=== PATIENT | male | born 1960 | race Caucasian/White ===

== ENCOUNTER 2019-09-13 11:35 | Emergency (ER) | payer OTHER, SELFPAY ==
--- NOTE | ~2019-09-13 | XR_ITS ---
EXAMINATION: XR chest 2V DATE: 09/13/2019 12:36 INDICATION: Near syncope. TECHNIQUE: Frontal and lateral views of the chest were obtained. COMPARISON: Chest single view 07/29/2019, CT abdomen 09/21/2006 FINDINGS: Calcified pulmonary nodules and calcified hilar lymph nodes are consistent with old granulo matous disease. No pleural effusion or pneumothorax. The heart size is normal. IMPRESSION: 1. No acute cardiopulmonary disease. Reviewed, dictated and finalized at location A. 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
[2019-09-13 11:43] VITALS: BP 155/95; PULSE 72; RESP 19; TEMP 36.8; O2SAT 98
--- NOTE | 2019-09-13 11:47 | ECG_ITS ---
Measurements Intervals [place] Rate: 71 P: 48 NC: 152 QRS: -18 QRSD: 99 T: 20 QT: 389 QTc: 425 Interpretive Statements SINUS RHYTHM DELAYED PRECORDIAL R/S TRANSITION BORDERLINE ECG Electronically Signed On 09-13-2019 11:58:19 EXCHANGE FLOOR MANAGER by Rachid Najera D.O.
[2019-09-13 11:57] LABS: Basophils Absolute Auto 0.1 K/mm3 (0.0-0.1); Basophils Percent Auto 1.1 % (0.2-1.2); Eosinophils Absolute Auto 0.2 K/mm3 (0-0.3); Hematocrit 41.2 % (42.0-52.0); Hemoglobin 13.7 g/dL (14.0-18.0); Immature Granulocyte Absolute 0.01 K/mm3 (0.00-0.031); Immature Granulocyte Percent A 0.1 % (0-0.5); Lymphocytes Absolute Auto 2.54 K/mm3 (0.9-3.2); Lymphocytes Percent Auto 31.9 % (18.3-44.2); Mean Corpuscular HGB Conc 33.3 g/dl (32-36); Mean Corpuscular Hemoglobin 30.6 pg (26-34); Mean Corpuscular Volume 92.2 fl (80-100); Mean Platelet Volume 9.1 fl (7.4-10.4); Monocytes Absolute Auto 0.6 K/mm3 (0.1-0.6); Monocytes Percent Auto 7.4 % (2.6-8.5); Neutrophils Absolute Auto 4.5 K/mm3 (1.3-6.7); Neutrophils Percent Auto 56.5 % (45.5-73.1); Platelet Count Result 270 k/mm3 (150-375); Red Blood Count 4.47 M/mm3 (4.6-6.20); Red Cell Distribution Width 11.8 % (11.5-14.5)
[2019-09-13 12:09] LABS: Alanine Aminotransferase 32 U/L (4-50); Albumin Level 4.5 g/dL (3.5-5.1); Alkaline Phosphatase 67 U/L (38-126); Aspartate Amino Transferase 30 U/L (17-59); Bilirubin,Total 0.4 mg/dL (0.2-1.3); Blood Urea Nitrogen 13 mg/dL (9-20); Calcium 9.6 mg/dL (8.4-10.2); Carbon Dioxide 28 mmol/L (22-30); Chloride 100 mmol/L (98-107); Estimated CRCL calculation 98 ml/min; Estimated Glomerular Filt Rate > 60; Glucose 105 mg/dL (75-110); Potassium 4.1 mmol/L (3.4-5.0); Sodium 141 mmol/L (137-145)
[2019-09-13 12:29] VITALS: BP 139/87; PULSE 72; RESP 17; O2SAT 97
--- NOTE | 2019-09-13 12:44 | ED.WEAKNESS ---
HPI - Weakness General Chief complaint: Weakness Stated complaint: Near Syncope Time Seen by Provider: 09/13/19 12:36 History of Present Illness HPI Narrative: A 58 y/o male pt presents to the ED, with c/o weakness that began at 1000 AM this morning. Pt states he was sitting at his desk at work when he felt a flush go across his head, moving from the lt side of his head to the rt. He states that following the flush he felt lightheaded and like he was going to pass out. He also notes feeling tingly and uneasy afterwards, similar to how he feels with his vertigo. Pt notes having 3 episodes that occurred about every 15 minutes and occurred when sitting and standing. He called his doctor and he was advised to come to the ED. He states he has a Hx of vertigo but says the onset is different than episodes he's had in the past. Pt notes that he currently feels fatigued and unsteady upon standing. He denies N/V, CP, SOB, fever, or change in appetite. Pt notes having oral surgery for a tooth extraction on Tuesday (3 days ago) and was advised to alternate between Tylenol Arthritis and Ibuprofen. He reports taking Ibuprofen x 2 before bed last night and 2 more this morning for his mouth. Pt notes having a Hx of HTN that he was placed on Losartan for and notes that he has not felt right since. Related Data Home Medications Medication Instructions Recorded Confirmed bupropion HCl 150 mg tablet,12 hr 150 mg PO BID 07/20/19 sustained-release simvastatin 20 mg tablet 20 mg PO HS 07/20/19 cholecalciferol (vitamin D3) 2,000 unit PO DAILY 07/29/19 [Vitamin D3] cyanocobalamin (vitamin B-12) 1,000 mcg PO DAILY 07/29/19 [Vitamin B-12] Allergies Allergy/AdvReac Type Severity Reaction Status Date / Time No Known Allergies Allergy Verified 09/07/19 15:33 [facility] Social History Social History Smoking status: Former smoker Alcohol intake: never Additional living arrangements comments: Essie Nagy Additional occupation/education comments: [employer] Gender identity (if verbalized by the patient): Male Exam Const: General: healthy appearing, no acute distress and alert Nutritional Appearance: well nourished Orientation/consciousness: patient oriented x3 HENMT: Head: normal to inspection Eyes: Conjunctivae: conjunctivae normal Pupils: Equal, round and reactive pupils present EOM: EOMs intact bilaterally Chest: Chest palpation & inspection: normal inspection of the chest Resp: Effort & Inspection: normal respiratory effort Auscultation: clear to auscultation bilaterally Cardio: Rate: regular rate Rhythm: regular rhythm GI: GI Palp: Yes Soft to palpation and No Tenderness to palpation present (GI) Skin: General skin exam: normal color Rashes: no rashes Neuro: General: patient oriented x3, moves all extremities, no focal motor deficits and CN's II-XI intact bilaterally Cranial nerves: Yes Nystagmus not present Speech: normal speech Extrem: General: normal to inspection and no edema Psych: Affect: Anxious affect present Course Vital Signs Vital signs: Vital Signs Temperature 36.8 C 09/13/19 11:43 Pulse Rate 72 09/13/19 11:43 Respiratory Rate 19 09/13/19 11:43 Blood Pressure 155/95 H 09/13/19 11:43 Pulse Oximetry 98 09/13/19 11:43 Temperature 36.8 C 09/13/19 11:43 Pulse Rate 72 09/13/19 12:29 Respiratory Rate 17 09/13/19 12:29 Blood Pressure 139/87 09/13/19 12:29 Pulse Oximetry 97 09/13/19 12:29 MDM - Weakness Lab Data Result diagrams: 09/13/19 11:51 09/13/19 11:51 Labs: Lab Results 09/13/19 09/13/19 09/13/19 Range/Units 11:51 11:51 13:37 WBC 8.0 (4.5-10.0) K/mm3 RBC 4.47 L (4.6-6.20) M/mm3 Hgb 13.7 L (14.0-18.0) g/dL Hct 41.2 L (42.0-52.0) % MCV 92.2 (80-100) fl MCH 30.6 (26-34) pg MCHC 33.3 (32-36) g/dl RDW 11.8 (1
[2019-09-13] MEDS: SODIUM CHLORIDE 0.9% IV 1,000 ML 999 ML IV CONT (13:41)
[2019-09-13 13:44] LABS: Add Urine Microscopic? NO; Appearance Urine Clear (Clear); Bilirubin Urine Negative (Negative); Blood Urine Negative (Negative); Color Urine Colorless (Yellow); Glucose Urine UA Negative (Negative); Ketones Urine Negative (Negative); Leukocyte Esterase Ur Negative LEU/UL (Negative); Nitrate Urine Negative (Negative); Protein Urine Negative (Negative); Specific Grav Ur 1.008 (1.001-1.035); Urobilinogen Urine Negative mg/dL (<2.0)
[2019-09-13 14:00] VITALS: BP 130/85; PULSE 71; RESP 15; O2SAT 99
[2019-09-13 15:40] VITALS: BP 136/86; PULSE 67; RESP 15; O2SAT 100
== END 2019-09-13 15:40 | disposition home or self-care (01) ==
PROVIDERS: Emergency Provider Emergency Medicine; PCP Family Medicine
DX: R42 Dizziness and giddiness (principal); Z87.891 Personal history of nicotine dependence; R94.31 Abnormal electrocardiogram [ECG] [EKG]
CPT/HCPCS: 36415; 71046; 80053; 81003; 85025; 93005; 96360; 99283; J7030

== ENCOUNTER 2019-09-17 09:37 | Outpatient (CLI) | payer OTHER, SELFPAY ==
--- NOTE | ~2019-09-17 | XR_ITS ---
XR knee RT 3V DATE: 09/17/2019 10:16 INDICATION: Primary osteoarthritis, right knee TECHNIQUE: 3 views COMPARISON: 04/10/2018 right knee FINDINGS: There is minimal loss of height of the medial compartment joint space. No fracture or dislo cation or joint effusion, radiopaque intra-articular loose body or chondrocalcinosis is detected. Mil d superior pole patellar enthesopathy. IMPRESSION: Minimal osteoarthritis Reviewed, dictated and finalized at location B. CONCURRENT REVIEW IMPRESSION: Minimal osteoarthritis
--- NOTE | ~2019-09-17 | XR_ITS ---
XR knee LT 3V DATE: 09/17/2019 10:16 INDICATION: Primary osteoarthritis TECHNIQUE: AP, lateral, sunrise views COMPARISON: None FINDINGS: There is mild loss of height of medial compartment joint space and minimal periarticular sp urring of the medial tibial plateau. No fracture or dislocation or joint effusion, radiopaque intra-articular loose body or chondrocalcino sis. No evidence of joint effusion. IMPRESSION: Mild osteoarthritis at the medial compartment Reviewed, dictated and finalized at location B. ER
--- NOTE | ~2019-09-17 | XR_ITS ---
XR hip BI 2V w AP pelvis DATE: 09/17/2019 10:14 INDICATION: Hip osteoarthritis. Hip pain. TECHNIQUE: AP pelvis. AP and lateral views of each hip. COMPARISON: None FINDINGS: The pubic symphysis and sacroiliac joints are intact. No pelvic fracture or bone destructio n is detected. No fracture, dislocation, avascular necrosis or bone destruction of either hip is note d. Hip joint spaces are symmetric and relatively preserved. There is degenerative disc disease at L4-5 and likely to a greater extent at L5-S1. IMPRESSION: Degenerative disc disease at L4-5 and L5-S1 Reviewed, dictated and finalized at location B. 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
== END 2019-09-17 09:38 | disposition home or self-care (01) ==
LOC: ANHIMG 09:41
PROVIDERS: PCP Family Medicine; Visit Provider Family Medicine
DX: M16.9 Osteoarthritis of hip, unspecified (principal); M17.11 Unilateral primary osteoarthritis, right knee; M51.37 Other intervertebral disc degeneration, lumbosacral region; M17.12 Unilateral primary osteoarthritis, left knee
CPT/HCPCS: 73521; 73562

== ENCOUNTER 2019-09-25 15:54 | Outpatient (CLI) | payer OTHER, SELFPAY ==
--- NOTE | ~2019-09-25 | MR_ITS ---
EXAMINATION: MR brain/brain stem wo/w con DATE: 09/25/2019 16:54 INDICATION: Dizziness, giddiness and unsteady gait. TECHNIQUE: Magnetic resonance imaging (MRI) of the brain and brainstem was performed without and with 20 mL Multihance intravenous contrast. Sequences included sagittal and axial T1-weighted SE, axial d iffusion-weighted FS SE, axial T2*-weighted GRE, axial T2-weighted FLAIR, and axial T2-weighted FSE. Postcontrast axial and coronal T1-weighted SE was obtained. Apparent diffusion coefficient (ADC) maps were created. COMPARISON: 12/05/2012 FINDINGS: There are no areas of restricted diffusion to suggest acute infarction. Again seen is a approximately 4.9 x 4.0 x 3.5 cm arachnoid cyst in the left middle cranial fossa anterior to the left temporal lob e which remains correspondingly decreased in size. No intracranial hemorrhage or abnormal intracrania l mass lesion. No interval change in a couple small nonspecific T2 hyperintense lesions in the anteri or right frontal lobe which is within normal limits for age. There are no intraparenchymal signal abn ormalities seen on the other pulse sequences. The ventricles are symmetric and normal in size. Flow v oids are seen in the cerebral arteries on the T2-weighted sequences consistent with their expected pa tency. This retention cyst at the base of the right maxillary sinus. Mild mucosal thickening the bila teral ethmoid sinuses. Visualized orbits and soft tissues are unremarkable. There are no areas of abn ormal enhancement on the post contrast images. IMPRESSION: 1. Unchanged arachnoid cyst in the left middle cranial fossa. Reviewed, dictated and finalized at location A. 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
[2019-09-25 16:35] LABS: Blood Urea Nitrogen 12 mg/dL (8-26); Estimated Glomerular Filt Rate > 60
== END 2019-09-25 15:55 | disposition home or self-care (01) ==
LOC: ANHIMG 16:04
PROVIDERS: PCP Family Medicine; Visit Provider Physician Assistant
DX: R42 Dizziness and giddiness (principal); G93.0 Cerebral cysts
CPT/HCPCS: 70553; A9577

== ENCOUNTER 2020-08-12 06:51 | Outpatient (NON) | payer OTHER, SELFPAY ==
[2020-08-13 00:16] LABS: SARS-CoV-2 RNA PCR Negative
== END 2020-08-12 06:52 ==
LOC: ANHCOVIDDT 07:07
PROVIDERS: PCP Family Medicine; Visit Provider Physician Assistant
DX: Z20.822 Contact with and (suspected) exposure to COVID-19 (principal); R05 Cough
CPT/HCPCS: C9803; U0003; U0005

== ENCOUNTER 2021-10-30 07:48 | Emergency (ER) | payer OTHER, SELFPAY ==
[2021-10-30 07:53] VITALS: BP 167/92; PULSE 107; RESP 16; TEMP 36.2; O2SAT 97
--- NOTE | 2021-10-30 09:13 | ED.GENADULT ---
HPI - General Adult General Chief complaint: Unspecified Stated complaint: my epiglottis is swollen Time Seen by Provider: 10/30/21 09:12 History of Present Illness HPI narrative: Patient is a 60 year old male with a past medical history of HTN, HLD, anxiety who presents for evaluation of a swollen uvula this morning. Patient states he woke up and felt that his uvula was swollen, and he googled it and mistook it for his epiglottis. Patient was concerned for epiglotitis, so he came in to be evaluated. He denies any difficulty breathing, drooling, fevers, chills, sore throat, vocal changes, cough. Was around several children this weekend. He received all of his childhood vaccinations. Related Data Home Medications Medication Instructions Recorded Confirmed cyanocobalamin (vitamin B-12) 1,000 mcg PO DAILY 07/29/19 05/22/21 [Vitamin B-12] Allergies Allergy/AdvReac Type Severity Reaction Status Date / Time No Known Allergies Allergy Verified 05/22/21 09:09 Review of Systems Review of Systems: All systems reviewed & are unremarkable except as noted in HPI and below [facility] Surgical History Surgical History History of rotator cuff surgery Left shoulder 05/30/2018 Family History Family History Grandparent Family history of cardiovascular disease Father Hypertension Heart disease Malignant neoplasm of prostate Social History Social History (Updated 05/22/21 @ 09:12 by CHARLIE Verdin) Alcohol intake: never Additional living arrangements comments: Essie Nagy Additional occupation/education comments: [employer] Gender identity (if verbalized by the patient): Male Exam Const: General: healthy appearing, no acute distress and alert Nutritional Appearance: average body habitus HENMT: Head: normal to inspection, normocephalic and atraumatic Ears: external ears normal and TM's normal bilaterally General nose exam: Normal external nose present and Normal nares present Face and sinus: normal facial exam Mouth: Yes Normal oral and palatal mucosa present, Yes tongue normal, Yes oropharynx normal, No trismus and No restricted motion Throat: tonsils normal, uvula midline (patient's uvula is very mildly edematous but is not erythematous ) and no peritonsillar masses Neck: Neck: normal visual inspection, full ROM, no lymphadenopathy, no meningeal signs, supple and no anterior neck swelling Resp: Effort & Inspection: normal respiratory effort, able to speak in complete sentences, no audible wheezes, no nasal flaring and no pursed lip breathing Cardio: Rate: tachycardic Rhythm: regular rhythm Heart sounds: S1 normal heart sound present and S2 normal heart sound present GI: Inspection: normal to inspection Course Vital Signs Vital signs: Vital Signs Temperature 97.2 F L 10/30/21 07:53 Pulse Rate 107 H 10/30/21 07:53 Respiratory Rate 16 10/30/21 07:53 Blood Pressure 167/92 H 10/30/21 07:53 Pulse Oximetry 97 10/30/21 07:53 Temperature 98.2 F 10/30/21 09:48 Pulse Rate 99 10/30/21 09:48 Respiratory Rate 16 10/30/21 09:48 Blood Pressure 152/87 H 10/30/21 09:48 Pulse Oximetry 100 10/30/21 09:48 Medical Decision Making [facility] Narrative Medical decision making narrative: 60 year old male here with reported swelling of his epiglottitis this morning, but no signs of airway obstruction. VSS; anxious appearing. On my exam patient did not have a visible epiglottis. When I showed him a picture of an oropharynx for clarification, he pointed to the uvula as what he was referring to as swollen this morning. By my exam, patient's uvula was mildly edematous but not erythematous, and did not have signs of obstruction. He was very relieved once I told him this and states he would like to go home. I explained strict return precautions to him, and t
[2021-10-30 09:48] VITALS: BP 152/87; PULSE 99; RESP 16; TEMP 36.8; O2SAT 100
== END 2021-10-30 09:49 | disposition home or self-care (01) ==
PROVIDERS: Emergency Provider Emergency Medicine; PCP Family Medicine
DX: R22.1 Localized swelling, mass and lump, neck (principal); I10 Essential (primary) hypertension; E78.5 Hyperlipidemia, unspecified; F41.9 Anxiety disorder, unspecified
CPT/HCPCS: 99281

== ENCOUNTER 2021-12-02 18:25 | Outpatient (CLI) | payer OTHER, SELFPAY ==
--- NOTE | ~2021-12-02 | XR_ITS ---
EXAMINATION: XR chest 2V Exam Date/Time: 12/02/2021 18:38 CDT CLINICAL HISTORY: Cough X 3 WEEKS, FEVER STARTING TODAY, TESTED + COVID TODAY Comparison: 09/13/19. RESULT: Lines, tubes, and devices: None. Lungs and pleura: Clear. Cardiomediastinal silhouette: Stable cardiomediastinal silhouette. Other: No acute osseous or upper abdominal finding. IMPRESSION: No acute cardiopulmonary process Reviewed, dictated and finalized at location K.
== END 2021-12-02 18:26 | disposition home or self-care (01) ==
PROVIDERS: PCP Family Medicine; Visit Provider Physician Assistant
DX: R05.9 Cough, unspecified (principal)
CPT/HCPCS: 71046

== ENCOUNTER 2022-05-20 08:11 | Outpatient (CLI) | payer OTHER, SELFPAY ==
[2022-05-20 20:04] LABS: Basophils Absolute Auto 0.1 K/mm3 (0.0-0.1); Basophils Percent Auto 1.9 % (0.2-1.2); Eosinophils Absolute Auto 0.2 K/mm3 (0-0.3); Eosinophils Percent Auto 2.7 % (0-4.4); Hematocrit 43.2 % (42.0-52.0); Immature Granulocyte Absolute 0.01 K/mm3 (0.00-0.031); Immature Granulocyte Percent A 0.2 % (0-0.5); Lymphocytes Absolute Auto 2.41 K/mm3 (0.9-3.2); Lymphocytes Percent Auto 38.9 % (18.3-44.2); Mean Corpuscular HGB Conc 32.4 g/dl (32-36); Mean Corpuscular Hemoglobin 30.6 pg (26-34); Mean Corpuscular Volume 94.5 fl (80-100); Mean Platelet Volume 9.3 fl (7.4-10.4); Monocytes Absolute Auto 0.5 K/mm3 (0.1-0.6); Monocytes Percent Auto 7.4 % (2.6-8.5); Neutrophils Percent Auto 48.9 % (45.5-73.1); Platelet Count Result 310 k/mm3 (150-375); Red Blood Count 4.57 M/mm3 (4.6-6.20); Red Cell Distribution Width 12.1 % (11.5-14.5); White Blood Count 6.2 K/mm3 (4.5-10.0)
[2022-05-20 20:46] LABS: Alanine Aminotransferase 31 U/L (6-50); Albumin Level 4.7 g/dL (3.5-5.1); Alkaline Phosphatase 71 U/L (38-126); Anion Gap 10 mmol/L (8-16); Aspartate Amino Transferase 29 U/L (17-59); Bilirubin,Total 0.5 mg/dL (0.2-1.3); Blood Urea Nitrogen 14 mg/dL (9-20); Calcium 9.5 mg/dL (8.4-10.2); Carbon Dioxide 26 mmol/L (22-30); Chloride 105 mmol/L (98-107); Cholesterol 159 mg/dL (0-200); Estimated Glomerular Filt Rate > 60; Glucose 116 mg/dL (65-110); HDL Direct 33 mg/dL; Potassium 3.9 mmol/L (3.4-5.0); Sodium 141 mmol/L (137-145); Triglycerides 99 mg/dL (<150)
[2022-05-20 20:57] LABS: LDL Cholesterol Direct 108 mg/dL
[2022-05-20 21:16] LABS: Prostate Specific Antigen 1.8 ng/mL (< OR = 4.0)
== END 2022-05-20 08:12 | disposition home or self-care (01) ==
LOC: ANHGOSHLAB 08:12
PROVIDERS: PCP Family Medicine; Visit Provider Family Medicine
DX: R73.03 Prediabetes (principal); I10 Essential (primary) hypertension; Z12.5 Encounter for screening for malignant neoplasm of prostate; E78.2 Mixed hyperlipidemia; R53.83 Other fatigue
CPT/HCPCS: 36415; 80053; 80061; 83036; 84153; 85025; G0103

== ENCOUNTER 2022-11-01 12:34 | Outpatient (CLI) | payer OTHER, SELFPAY ==
[2022-11-01 18:12] LABS: Basophils Absolute Auto 0.1 K/mm3 (0.0-0.1); Basophils Percent Auto 1.2 % (0.2-1.2); Eosinophils Absolute Auto 0.1 K/mm3 (0-0.3); Eosinophils Percent Auto 1.6 % (0-4.4); Hemoglobin 14.7 g/dL (14.0-18.0); Immature Granulocyte Absolute 0.02 K/mm3 (0.00-0.031); Immature Granulocyte Percent A 0.2 % (0-0.5); Lymphocytes Absolute Auto 3.15 K/mm3 (0.9-3.2); Lymphocytes Percent Auto 35.3 % (18.3-44.2); Mean Corpuscular HGB Conc 33.4 g/dl (32-36); Mean Corpuscular Hemoglobin 30.9 pg (26-34); Mean Corpuscular Volume 92.6 fl (80-100); Monocytes Absolute Auto 0.6 K/mm3 (0.1-0.6); Monocytes Percent Auto 6.4 % (2.6-8.5); Neutrophils Absolute Auto 4.9 K/mm3 (1.3-6.7); Neutrophils Percent Auto 55.3 % (45.5-73.1); Platelet Count Result 295 k/mm3 (150-375); Red Blood Count 4.75 M/mm3 (4.6-6.20); Red Cell Distribution Width 12.2 % (11.5-14.5); White Blood Count 8.9 K/mm3 (4.5-10.0)
[2022-11-01 18:29] LABS: Rheumatoid Factor < 8.6 IU/ML (<12)
[2022-11-01 18:30] LABS: CRP < 0.5 mg/dL (<1.0); Uric Acid 5.4 mg/dL (3.5-8.5)
[2022-11-01 19:14] LABS: Erythrocyte Sedimentation Rate 6 mm/hr (0-20)
[2022-11-07 14:16] LABS: Anti Nuclear Antibody Pattern Nuclear, Speckled
== END 2022-11-01 12:35 | disposition home or self-care (01) ==
LOC: ANHGOSHLAB 12:35
PROVIDERS: PCP Family Medicine; Visit Provider Orthopaedic Surgery
DX: M17.0 Bilateral primary osteoarthritis of knee (principal); M06.9 Rheumatoid arthritis, unspecified
CPT/HCPCS: 36415; 84550; 85025; 85652; 86038; 86039; 86140; 86430

== ENCOUNTER 2023-01-21 09:08 | Outpatient (CLI) | payer OTHER, SELFPAY ==
--- NOTE | 2023-02-15 13:11 | WPDSLEEPSTUD ---
Sleep Study Date of Study: 01/21/23 Ordering Provider: Walter Bar DO Interpreting Physician: Daysi Argueta DO Sleep Study Type: Split Polysomnogram Height: 1.83 m Weight: 108.862 kg Body Mass Index: 32.5 Neck Circumference (inches): 19 [place]: 11 Reason for Sleep Study Witnessed apneas Sleep History The patient is a 62-year-old male with hypertension, hyperlipidemia,, psoriasis, bilateral arthritis of knees and history of tobacco use that had a sleep study by his primary care for of sleep apnea. The patient rarely awakens from sleep short of breath. He occasionally awakens at night with heartburn, belching or cough. He frequently snores and is frequently loud enough that others complain. He frequently has trouble sleeping when he has a cold. He denies waking up gasping for air throughout the night. He occasionally has breathing problems at night observed by himself or others. He occasionally sweats excessively at night. He occasionally has heart palpitations or irregular heartbeats during the night. He rarely falls asleep during the day. He rarely falls asleep while driving. He denies sleep paralysis, cataplexy and hypnagogic / hypnopompic hallucinations. He occasionally has trouble at school or work due to sleepiness. He denies feeling afraid of going to sleep. He rarely has nightmares and rarely remembers his dreams. He frequently has thoughts racing through his mind. He rarely feels sad or depressed. He occasionally has anxiety. He rarely has muscular tension. He occasionally notices parts of his body jerk. He rarely kicks during the night. He rarely experiences crawling and aching feelings in his legs but never has leg pain during the night. He rarely grinds his teeth during sleep never awakens with morning jaw pain. He is occasionally bothered by pain during the day but rarely awakened by pain the night he frequently wakes up feeling stiff morning. Frequently wakes up with sore or achy muscles. He rarely wakes with pain in the neck, spine and other joints. He goes to bed at 9:30 p.m. on weekdays and at 10:00 p.m. weekends. It takes him less than 5 minutes to fall asleep. Wakes up 7 times throughout the night to urinate and is able to fall back asleep within a few minutes or sometimes a few hours. He wakes up at 6:00 a.m. on both weekdays and weekends. He typically gets 6 hours of sleep per night. He will stay in bed for 15 minutes after waking up in morning. He currently lives with his and other family members. He does consume caffeinated beverages within 2 hours of bedtime. He denies engaging in physical exercise before bedtime. He denies reading watching television before falling asleep. He will take naps in the afternoon or the evening and they are refreshing. He consumes 3 caffeinated beverages per day. He quit smoking cigarettes 20 years ago. He denies alcohol and recreational drug use. [facility] Past Medical History Medical History Anxiety Degenerative arthritis of knee, bilateral High cholesterol Hypertension Psoriasis Surgical History Surgical History History of rotator cuff surgery Left shoulder 05/30/2018 Family History Family History Grandparent Family history of cardiovascular disease Father Hypertension Heart disease Malignant neoplasm of prostate Social History Social History Smoking status: Former smoker Alcohol intake: never Substance use: never Substance use type: does not use Lack of Transportation: No Lack of Food: Never True Current Housing: I Have Housing Concerned About Future Housing: No Difficulty Paying Gas/Electric Bills: No Difficulty Paying for Meds: No Currently Unemployed: No Education: Bachelor'
[2023-02-15 13:13] VITALS: BMI 32.5
== END 2023-01-22 07:59 | disposition home or self-care (01) ==
LOC: ANHCSM 09:08
PROVIDERS: PCP Family Medicine; Visit Provider Family Medicine
DX: G47.33 Obstructive sleep apnea (adult) (pediatric) (principal); R53.83 Other fatigue
CPT/HCPCS: 95811

== ENCOUNTER 2023-04-01 03:44 | Day surgery (SDC) | payer OTHER, SELFPAY ==
[2023-03-21 11:23] VITALS: BMI 31.4
[2023-04-01 08:47] VITALS: BP 138/82; PULSE 74; RESP 18; TEMP 36.2; O2SAT 97
[2023-04-01] MEDS: LACTATED RINGERS 1,000 ML 150 ML IV CONT (09:05)
--- NOTE | 2023-04-01 09:18 | WPDANESEPPF ---
Anes - Initial Pre Proc Eval Procedure: Operation Date: 04/01/23 10:00 Proposed Procedures p Screening Colonoscopy - Derrick Rich MD Date/Time: 04/01/23 09:18 Surgeon: Derrick Rich MD Pre Op Diagnosis: neoplasm screening Patient Data Age: 62 Gender: M Height: 1.83 m Weight: 104.6 kg Last Vital Signs Temp 97.2 F L 04/01/23 08:47 Pulse 74 04/01/23 08:47 Resp 18 04/01/23 08:47 BP 138/82 04/01/23 08:47 Pulse Ox 97 04/01/23 08:47 O2 Del Method Room Air 04/01/23 08:47 Allergies Allergy/AdvReac Type Severity Reaction Status Date / Time No Known Allergies Allergy Verified 04/01/23 08:46 Home Medications Medication Instructions Recorded Confirmed Type albuterol sulfate 90 mcg/actuation 2 inh inhalation Q4H PRN Allergy 05/14/22 03/31/23 History aerosol inhaler (ProAir HFA) Symptoms losartan 25 mg tablet See Rx Instructions .Route 08/24/22 03/31/23 Rx .COMPLEX #90 tabs simvastatin 20 mg tablet See Rx Instructions .Route 08/24/22 03/31/23 Rx .COMPLEX #90 tabs bupropion HCl 150 mg tablet,12 hr See Rx Instructions .Route 11/11/22 03/31/23 Rx sustained-release .COMPLEX #180 tabs CPAP #1 ea 02/15/23 02/17/23 Rx Patient hx anesthesia problems: none Family hx anesthesia problems: none Results Review: All pre-operative results and documents have been reviewed as part of the pre-operative evaluation. [facility] Past Medical History Medical History Anxiety Degenerative arthritis of knee, bilateral High cholesterol Hypertension Psoriasis Surgical History Surgical History History of rotator cuff surgery Left shoulder 05/30/2018 Family History Family History Grandparent Family history of cardiovascular disease Father Hypertension Heart disease Malignant neoplasm of prostate Social History Social History Smoking status: Former smoker Alcohol intake: never Substance use: never Substance use type: does not use Lack of Transportation: No Lack of Food: Never True Current Housing: I Have Housing Concerned About Future Housing: No Difficulty Paying Gas/Electric Bills: No Difficulty Paying for Meds: No Currently Unemployed: No Education: Bachelor's Degree Difficulty w/ Childcare or Family Care: No Living arrangements: with family Additional living arrangements comments: Essie Nagy Occupation/Education: occupation Additional occupation/education comments: [employer] Gender identity (if verbalized by the patient): Male Spiritual care concerns: No Anes - Eval Final PreProcedure Day of Procedure 04/01/23 09:18 Patient weight: obese Heart: regular rate and rhythm Lungs: clear to auscultation Airway: Mallampati scale class II Neurological: alert and oriented Last oral intake: >/= 8 hours ASA classification: III Emergent: no Anesthetic plan: proceed Anesthesia type and monitoring: general GIVS and standard monitoring Results Review: All pre-operative results and documents have been reviewed as part of the pre-operative evaluation. Informed Consent: The patient's anesthetic plan and its attendant risks and benefits were discussed with the patient/family/POA. Questions were solicited and answers provided to the satisfaction of the patient/family/POA.
--- NOTE | 2023-04-01 09:41 | PM.HPGS ---
History of Present Illness History of Present Illness Consent: Risks, benefits, and alternatives have been discussed and questions answered. Patient agrees to proceed with procedure. Chief complaint: neoplasm screening Narrative: Baron Goldberg is a 62 year old male here for screening colonoscopy, last one 2007 Review of Systems Constitutional: Constitutional: Denies headache(s) and Denies weakness Eyes: Eyes: Denies blurry vision ENT: Reports Normal hearing present, Denies headache(s) and Denies neck pain Cardiovascular: Cardiovascular: Denies chest pain and Denies dyspnea Respiratory: Respiratory: Denies dyspnea Gastrointestinal: Gastrointestinal: Reports no additional gastrointestinal complaints Genitourinary: Genitourinary: Denies dysuria Musculoskeletal: Musculoskeletal: Denies neck pain Integumentary/Breasts: Skin/Breast: Denies dry skin Neurologic: Reports Normal hearing present, Denies headache(s) and Denies weakness Psychiatric: Psychiatric: Denies anxiety Endocrine: Endocrine: Denies change in body appearance Hematologic/Lymphatic: Hematologic/Lymphatic: Denies easy bleeding Allergic/Immunologic: Allergic/Immunologic: Denies urticaria PMFSH Past Medical History Medical History (Updated 04/01/23 @ 09:42 by Derrick Rich MD) Anxiety Colon cancer screening Degenerative arthritis of knee, bilateral High cholesterol Hypertension Psoriasis Surgical History Surgical History History of rotator cuff surgery Left shoulder 05/30/2018 Family History Family History Grandparent Family history of cardiovascular disease Father Hypertension Heart disease Malignant neoplasm of prostate Social History Social History Smoking status: Former smoker Alcohol intake: never Substance use: never Substance use type: does not use Lack of Transportation: No Lack of Food: Never True Current Housing: I Have Housing Concerned About Future Housing: No Difficulty Paying Gas/Electric Bills: No Difficulty Paying for Meds: No Currently Unemployed: No Education: Bachelor's Degree Difficulty w/ Childcare or Family Care: No Living arrangements: with family Additional living arrangements comments: Essie Nagy Occupation/Education: occupation Additional occupation/education comments: [employer] Gender identity (if verbalized by the patient): Male Spiritual care concerns: No Meds Home Medications and Allergies Home Medications Medication Instructions Recorded Confirmed Type albuterol sulfate 90 mcg/actuation 2 inh inhalation Q4H PRN Allergy 05/14/22 03/31/23 History aerosol inhaler (ProAir HFA) Symptoms losartan 25 mg tablet See Rx Instructions .Route 08/24/22 03/31/23 Rx .COMPLEX #90 tabs simvastatin 20 mg tablet See Rx Instructions .Route 08/24/22 03/31/23 Rx .COMPLEX #90 tabs bupropion HCl 150 mg tablet,12 hr See Rx Instructions .Route 11/11/22 03/31/23 Rx sustained-release .COMPLEX #180 tabs CPAP #1 ea 02/15/23 02/17/23 Rx Allergies Allergy/AdvReac Type Severity Reaction Status Date / Time No Known Allergies Allergy Verified 04/01/23 08:46 Vital Signs Vital Signs - 24 hr 04/01/23 08:47 Temperature 97.2 F L Pulse Rate 74 Respiratory Rate 18 Blood Pressure 138/82 Pulse Oximetry 97 Oxygen Delivery Room Air Exam Const: General: comfortable and no acute distress HENMT: Face/Nose/Sinus: Normal nares present Eyes: General: appearance normal, both eyes and all related structures Neck: Neck: no JVD Resp: Auscultation: clear to auscultation bilaterally Cardio: Rate: regular rate Rhythm: regular rhythm GI: Inspection: non-distended GI Palp: Yes Soft to palpation Skin: General skin exam: normal color Neuro: General: gait
[2023-04-01 10:04] VITALS: BP 108/77; PULSE 79; RESP 15; O2SAT 100
[2023-04-01 10:14] VITALS: BP 115/76; PULSE 78; RESP 17; O2SAT 100
[2023-04-01 10:24] VITALS: BP 116/77; PULSE 73; RESP 20; O2SAT 100
== END 2023-04-01 10:34 | disposition home or self-care (01) ==
PROVIDERS: PCP Family Medicine; Visit Provider Internal Medicine Gastroenterology
PROC: 0DJD8ZZ Inspection of Lower Intestinal Tract, Via Natural or Artificial Opening Endoscopic (ICD-10-PCS; CPT 45378; principal; 2023-04-01 10:00)
DX: Z12.11 Encounter for screening for malignant neoplasm of colon (principal); Z79.51 Long term (current) use of inhaled steroids; I10 Essential (primary) hypertension; E78.00 Pure hypercholesterolemia, unspecified; F41.9 Anxiety disorder, unspecified; E66.9 Obesity, unspecified; Z68.31 Body mass index [BMI] 31.0-31.9, adult
CPT/HCPCS: 45378; J2704; J7120

== ENCOUNTER 2023-04-07 12:30 | Outpatient (RCR) | payer OTHER, SELFPAY ==
--- NOTE | 2023-02-21 15:46 | OPREHPOC ---
Outpatient Therapy Plan of Care This is a Multidisciplinary Plan of Care that may contain components documented by all disciplines (PT, OT, and ST.) PT Problem 1 PT Problem #1 Knowledge Deficit PT Goal 1 Goal Pt to be IND with issued HEP Target Visit 8 PT Problem 2 PT Problem #2 Pain PT Goal 1 Goal Pt to report L hip pain no greater than 3/10 in the last week Target Visit 8 PT Goal 2 Goal Pt to report being able to walk for 30 mins prior to needing to sit d/t pain. Target Visit 8 PT Problem 3 PT Problem #3 Impaired Sensation PT Goal 1 Goal Pt to report equal stretch sensation with passive piriformis stretching Target Visit 8 PT Goal 2 Goal Pt to report no tenderness to palpation with QL nor piriformis palpation. PT Problem 4 PT Problem #4 Impaired Range of Motion PT Goal 1 Goal Pt to demonstrate pain free active lumbar ROM. Target Visit 8
--- NOTE | 2023-02-21 15:46 | PTOPEVAL1 ---
Assessment and note entered by Betty Mcmillan, PT, DPT Evaluation Information Assessment Status Evaluation Diagnosis L leg pain Onset 3 weeks Subjective Information Pt reports L hip and buttock pain that bothers him anytime he is in a position for too long. He reports a pain down the anterolateral side of his L lower leg. He reports difficulty standing or sitting for too long. There were degenerative changes in his lumbar X-rays a few years ago. Reported Pain Level Pain Score 4: Self Report Assessment PT Clinical Summary Baron presents to therapy today for his initial evaluation with a diagnosis of L leg pain. Today he demonstrates lumbar active ROM this is WNL but reports increased pain during, he does not demonstrates a movement bias. He ambulates with increased genu valgus, R knee hyperextension, and bart LE ext. rot. He demonstrates significant tenderness to palpation to in his L quadratus lumborum and L piriformis with increased tension to passive stretching in the R piriformis. Skilled physical therapy services are indicated to manage pain, to improve mobility, to return to PLOF. Plan of Care Interventions Electrical Stimulation,Gait Training,Hot Pack/Cold Pack,Manual Therapy,Neuro Re-education,Patient/ Caregiver Educati,Therapeutic Activities, Therapeutic Exercise,Ultrasound PT Services Indicated Yes Treatment Frequency and 1-2x/wk for 4 wks Duration These treatments will address the objective and functional deficits as defined above. The patient will be advanced safely and appropriately in order for the patient to progress towards his/her prior level of function. Additional exercises will be introduced and as well as a comprehensive home exercise program upon discharge, if needed, ?to ensure carryover of functional gains achieved in the clinic. This treatment plan has been reviewed and agreement upon by the patient.
--- NOTE | 2023-03-21 09:09 | PTOPPROG ---
Assessment and note entered by Betty Mcmillan, PT, DPT Evaluation Information Assessment Status Progress Diagnosis L leg pain Onset 3 weeks Subjective Information Pt states overall things are doing better at the moment. He states when sitting at his desk all day and all week his back starts to hurt, then over the weekend when he is up and moving around a little bit more his pain decreases. Assessment PT Clinical Summary Baron presents to therapy today for his progress report following 4 visits of skilled therapy to treat his diagnosis of L leg pain. Today he demonstrates lumbar active ROM that does not increase his pain. His functional mobility and body awareness has improved but he continues to have high pain reports. Continuation of skilled physical therapy services are indicated to manage pain, to improve mobility, to return to PLOF. Plan of Care Interventions Electrical Stimulation,Gait Training,Hot Pack/Cold Pack,Manual Therapy,Neuro Re-education,Patient/ Caregiver Educati,Therapeutic Activities, Therapeutic Exercise,Ultrasound PT Services Indicated Yes Treatment Frequency and 1-2x/wk for 4 wks Duration These treatments will address the objective and functional deficits as defined above. The patient will be advanced safely and appropriately in order for the patient to progress towards his/her prior level of function. Additional exercises will be introduced and as well as a comprehensive home exercise program upon discharge, if needed, ?to ensure carryover of functional gains achieved in the clinic. This treatment plan has been reviewed and agreement upon by the patient.
--- NOTE | 2023-03-30 13:01 | PCPTNOTE ---
Patient no showed this date. Called and spoke with patient who states he must have forgot and he will call back after he goes to the back doctor tomorrow.
--- NOTE | 2023-04-07 13:00 | PCPTNOTE ---
Patient no showed to appointment stating he is waiting to hear back from his MD. Patient on hold per patient request.
--- NOTE | 2023-05-09 13:34 | PTOPDC ---
Assessment and note entered by Betty Mcmillan, PT, DPT Evaluation Information Assessment Status Discharge - Pt Not Present Diagnosis L leg pain Onset 3 weeks Subjective Information Pt requested on 03/21/23 to be placed on hold as he wanted to follow up with her provider prior to continuing with more therapy. On 04/26/23, called and LVM with pt to follow up and have not heard back from him as of 05/09/23. He will be discharged at this time d/t inactive therapy attendance. Assessment PT Clinical Summary Baron completed 5 visits of skilled therapy from to 01/19/23 and has not attendance since. Plan of Care PT Services Indicated No
== END 2023-05-09 13:48 | disposition home or self-care (01) ==
LOC: ANHGOSHPT 12:30
PROVIDERS: PCP Family Medicine; Visit Provider Orthopaedic Surgery
DX: M79.605 Pain in left leg (principal)
CPT/HCPCS: 97110; 97112; 97140; 97161; 97530; 99199

== ENCOUNTER 2023-08-05 18:30 | Emergency (ER) | payer OTHER, SELFPAY ==
[2023-08-05 18:39] VITALS: BP 130/87; PULSE 85; RESP 18; TEMP 36.6; O2SAT 98
--- NOTE | 2023-08-05 18:46 | ED.URI ---
HPI - URI/Sore Throat General Chief Complaint: Upper Respiratory Infection Stated Complaint: COUGH Time Seen by Provider: 08/05/23 18:46 Source: patient, RN notes reviewed and old records reviewed Mode of arrival: ambulatory Limitations: no limitations History of Present Illness HPI Narrative: 62-year-old male presents to the [facility] with complaints of a dry cough since before Yared. Denies fevers. Patient denies any other symptoms. [facility] health where they have young children as well. Over the last couple weeks everybody has had cough, congestion Patient denies any chest pain, shortness of breath, abdominal pain or fevers Onset (ago): week(s) Related Data Allergies Allergy/AdvReac Type Severity Reaction Status Date / Time No Known Allergies Allergy Verified 08/05/23 18:42 Review of Systems Review of Systems: All systems reviewed & are unremarkable except as noted in HPI and below Constitutional: Constitutional: Reports no additional constitutional complaints Eyes: Eyes: Reports no additional eye complaints ENT: Reports system reviewed and no additional complaints, except as documented Cardiovascular: Cardiovascular: Reports no additional cardiovascular complaints, Denies chest pain and Denies dyspnea Respiratory: Respiratory: Reports as per HPI, Denies chest congestion, Reports cough and Denies dyspnea Gastrointestinal: Gastrointestinal: Reports no additional gastrointestinal complaints, Denies abdominal pain, Denies nausea and Denies vomiting Musculoskeletal: Musculoskeletal: Reports no additional musculoskeletal complaints Integumentary/Breasts: Skin/Breast: Reports system reviewed and no additional complaints, except as docu Neurologic: Reports system reviewed and no additional complaints, except as documented Psychiatric: Psychiatric: Reports no additional psychiatric complaints Allergic/Immunologic: Allergic/Immunologic: Reports no additional allergic/immunologic complaints [facility] Past Medical History Medical History Anxiety Colon cancer screening Degenerative arthritis of knee, bilateral High cholesterol Hypertension Psoriasis Surgical History Surgical History History of rotator cuff surgery Left shoulder 05/30/2018 Family History Family History Grandparent Family history of cardiovascular disease Father Hypertension Heart disease Malignant neoplasm of prostate Social History Social History Smoking status: Former smoker Alcohol intake: never Substance use: never Substance use type: does not use Lack of Transportation: No Lack of Food: Never True Current Housing: I Have Housing Concerned About Future Housing: No Difficulty Paying Gas/Electric Bills: No Difficulty Paying for Meds: No Currently Unemployed: No Education: Bachelor's Degree Difficulty w/ Childcare or Family Care: No Living arrangements: with family Additional living arrangements comments: Essie Nagy Occupation/Education: occupation Additional occupation/education comments: [employer] Gender identity (if verbalized by the patient): Male Spiritual care concerns: No Comments At the time of my signature, I reviewed and agree with the nursing past medical, surgical, social, and family history. There is no relevant family history pertinent to the patient complaint. Exam Const: General: cooperative, healthy appearing, comfortable, no acute distress, well developed, alert and well nourished Nutritional Appearance: well nourished Orientation/consciousness: patient oriented x3 Limitations: no limitations HENMT: Head: normal to inspection Ears: hearing grossly normal bilaterally, external ears normal, TM's normal bilaterally, EAC's normal, mastoids normal and
== END 2023-08-05 19:06 | disposition home or self-care (01) ==
PROVIDERS: Emergency Provider Nurse Practitioner; PCP Family Medicine
DX: J40 Bronchitis, not specified as acute or chronic (principal); Z87.891 Personal history of nicotine dependence; E78.00 Pure hypercholesterolemia, unspecified; I10 Essential (primary) hypertension; L40.9 Psoriasis, unspecified; M17.0 Bilateral primary osteoarthritis of knee; F41.9 Anxiety disorder, unspecified
CPT/HCPCS: 99213; G0463

== ENCOUNTER 2023-12-09 17:07 | Outpatient (CLI) | payer OTHER, SELFPAY ==
--- NOTE | ~2023-12-09 | XR_ITS ---
EXAMINATION: XR knee RT min 4V DATE: 12/09/2023 17:19 INDICATION: Right knee pain TECHNIQUE: Anteroposterior, 2 oblique and crosstable lateral views of the right knee were obtained COMPARISON: None. FINDINGS: Alignment is normal. No fracture. Joint mild joint space narrowing the medial compartment which coul d be under estimated on nonweightbearing imaging.. Tiny marginal osteophytes along the patella. Small enthesophyte at the patellar insertion of the distal quadriceps tendon. No knee joint effusion. Soft tissues are unremarkable. IMPRESSION: 1. Mild medial and patellofemoral compartment osteoarthritis. Reviewed, dictated and finalized at location A.
== END 2023-12-09 17:08 | disposition home or self-care (01) ==
LOC: ANHIMG 17:08
PROVIDERS: PCP Family Medicine; Visit Provider Family Medicine
DX: M17.11 Unilateral primary osteoarthritis, right knee (principal)
CPT/HCPCS: 73564

== ENCOUNTER 2024-03-06 08:15 | Outpatient (RCR) | payer OTHER, SELFPAY ==
[2023-12-21 10:40] VITALS: BMI 31.4
[2024-01-18 08:15] VITALS: BMI 29.8
[2024-01-18 08:19] VITALS: BMI 29.8
[2024-03-06 08:15] VITALS: BMI 28.7
== END 2024-03-12 10:22 | disposition home or self-care (01) ==
LOC: ANHDMC 08:15
PROVIDERS: PCP Family Medicine; Visit Provider Family Medicine
DX: E11.9 Type 2 diabetes mellitus without complications (principal); Z71.3 Dietary counseling and surveillance
CPT/HCPCS: 97802; 97803

== ENCOUNTER 2024-09-16 08:58 | Outpatient (CLI) | payer OTHER, SELFPAY ==
--- NOTE | ~2024-09-16 | XR_ITS ---
CHEST RADIOGRAPH, PA AND LATERAL CLINICAL HISTORY: R05.9 - Cough, unspecified/lbp . COMPARISON: 12/02/2021 TECHNIQUE: PA and lateral views of the chest. FINDINGS The cardiomediastinal silhouette is unremarkable. The lungs are clear. Visualized osseous structures and soft tissues are unremarkable. IMPRESSION: No focal infiltrate or effusion. Reviewed, dictated and finalized at location A. FIREMAN
--- NOTE | ~2024-09-16 | XR_ITS ---
HISTORY: M54.50 - Low back pain, unspecified COMPARISON: 03/31/2023 TECHNIQUE: 2 view lumbar spine. FINDINGS: Lumbar vertebral bodies are normally aligned. There are 5 non-rib bearing lumbar vertebral bodies. Degenerative disease is identified, predominantly at the level of L4/L5 and L5/S1 with osteophyte for mation, disc space narrowing, endplate changes and vacuum phenomena. Significant facet arthropathy is also noted. Remaining disc spaces and vertebral body heights are well maintained. There are no lytic or sclerotic lesions. Dense calcification within the infrarenal abdominal aorta. Remaining paraspinous soft tissues are unremarkable. IMPRESSION: Significant degenerative disease, without acute compression fracture. Reviewed, dictated and finalized at location A. STRESS ENGINEER
== END 2024-09-16 08:59 | disposition home or self-care (01) ==
PROVIDERS: PCP Clinical Nurse Specialist; Visit Provider Clinical Nurse Specialist
DX: M51.360 Other intervertebral disc degeneration, lumbar region with discogenic back pain only (principal); M51.370 Other intervertebral disc degeneration, lumbosacral region with discogenic back pain only
CPT/HCPCS: 71046; 72100

== ENCOUNTER 2024-10-17 15:38 | Outpatient (CLI) | payer OTHER, SELFPAY ==
--- NOTE | ~2024-10-17 | MR_ITS ---
MRI of the brain Clinical History: Dizziness and giddiness, vertigo Technique: Axial and sagittal T1-weighted images were acquired. These were followed by axial T2-weigh wero, diffusion weighted, gradient, and FLAIR images. Thin cut imaging through the internal auditory c anals was performed, with coronal T1-weighted and T2-weighted images, and axial T1-weighted images. F ollowing intravenous administration of 20 cc ProHance gadolinium, T1-weighted fat-sat imaging was per formed through the brain in the axial and coronal planes. Thin cut postcontrast imaging was performed through the internal auditory canals in the axial and coronal planes. COMPARISON: 09/25/2019 Findings: No abnormal signal seen in the brain parenchyma. No intracranial hemorrhage or acute infarc t. No solid intracranial mass evident. Stable arachnoid cyst at the anterior left temporal fossa. Ventricles and subarachnoid spaces are unremarkable. Orbits are unremarkable. Paranasal sinuses and m astoid air cells are essentially clear. Major intracranial flow voids are intact. Sagittal midline structures are intact. No abnormal mass lesion identified at the internal auditory canals or cerebellopontine angle regions. IMPRESSION: No abnormal mass lesion at the internal auditory canals or CP angle regions. Stable anterior left temporal fossa arachnoid cyst. Reviewed, dictated and finalized at location .
== END 2024-10-17 15:39 | disposition home or self-care (01) ==
PROVIDERS: PCP Internal Medicine; Visit Provider Clinical Nurse Specialist
DX: G93.0 Cerebral cysts (principal)
CPT/HCPCS: 70553; A9579

== ENCOUNTER 2025-01-21 16:50 | Outpatient (CLI) | payer OTHER, SELFPAY ==
--- NOTE | ~2025-01-21 | XR_ITS ---
HISTORY: M17.11 - Unilateral primary osteoarthritis, right knee COMPARISON: None TECHNIQUE: 4 views of the right knee were performed FINDINGS: No acute or subacute fracture. Medial and lateral tibiofemoral joint space narrowing is identified. No suprapatellar joint effusion is identified. The infrapatellar joint space is clear. Ossification of the insertion of the quadriceps tendon is identified. IMPRESSION: Degenerative disease, without acute fracture. Reviewed, dictated and finalized at location A.
== END 2025-01-21 16:51 | disposition home or self-care (01) ==
PROVIDERS: PCP Internal Medicine; Visit Provider Orthopaedic Surgery
DX: M17.11 Unilateral primary osteoarthritis, right knee (principal)
CPT/HCPCS: 73564

== ENCOUNTER 2025-01-31 18:43 | Emergency (ER) | payer OTHER, SELFPAY ==
[2025-01-31 18:55] VITALS: BP 138/84; PULSE 90; RESP 16; TEMP 36.7; O2SAT 97
--- NOTE | 2025-01-31 19:24 | ED.ABDPAIN ---
HPI - Abdominal Pain General Chief Complaint: Abdominal Pain Stated Complaint: R FLANK/L ABD PAIN Time Seen by Provider: 01/31/25 18:59 Source: patient, family (), RN notes reviewed and old records reviewed Mode of arrival: ambulatory Limitations: no limitations History of Present Illness HPI narrative: Patient presents today complaining of a 2 week history of right low back pain and right upper quadrant/lateral abdominal pain. Both of these issues seem to be worse with movement and resolve when in at rest. Patient has taken some Advil 2 times at onset of symptoms, which did provide some relief of back pain, but has not taken any more since that time. Before onset of back pain, patient did carry some very heavy luggage while on vacation, down some long sidewalks, but denies any know injury at that time. Denies fever, urinary symptoms, nausea, vomiting, diarrhea, constipation, numbness or tingling. Patient also is complaining of 3 episodes of lightheadedness/presyncope, each lasting 10-20 seconds, occurring prior to arrival while shopping at [employer] this evening. During this time he denies chest pain, shortness of breath, vision changes, headache, palpitations racing heartbeat, or any additional symptoms. Patient does have history of chronic vertigo for which he takes meclizine, and specifically states that these episodes of lightheadedness are different than his chronic vertigo symptoms. Related Data Allergies Allergy/AdvReac Type Severity Reaction Status Date / Time No Known Allergies Allergy Verified 01/31/25 18:53 [facility] Past Medical History Medical History Encounter to establish care Low oxygen saturation Colon cancer screening Degenerative arthritis of knee, bilateral Psoriasis Anxiety High cholesterol Hypertension Surgical History Surgical History History of rotator cuff surgery Left shoulder 05/30/2018 Family History Family History Grandparent Family history of cardiovascular disease Father Hypertension Heart disease Malignant neoplasm of prostate Metastatic prostate cancer to the bone (under hospice care November 2024) Social History Social History Social History: caffeine- daily Smoking status: Former smoker Alcohol intake: never Substance use: never Substance use type: does not use Lack of Transportation: No Lack of Food: Never True Current Housing: I Have Housing Concerned About Future Housing: No Difficulty Paying Gas/Electric Bills: No Difficulty Paying for Meds: No Currently Unemployed: No Education: Bachelor's Degree Difficulty w/ Childcare or Family Care: No Living arrangements: with family Additional living arrangements comments: Essie Nagy Occupation/Education: occupation Additional occupation/education comments: [employer] Gender identity (if verbalized by the patient): Male Spiritual care concerns: No Comments At time of signature, I have reviewed and agree with nursing past medical, surgical, social and family history unless otherwise noted. Please see nursing chart for further information. There is no relevant family history pertinent to the presenting complaint Exam Narrative: GENERAL: Well-appearing, well-nourished, and in no acute distress. HEAD: Normocephalic, atraumatic. EYES: EOMI. PERRL. No nystagmus. No redness or drainage. Conjunctivae normal. ENT: Mucous membranes pink and moist. NECK: Normal AROM. Supple. No lymphadenopathy. CHEST: No respiratory distress. Clear to auscultation. HEART: Regular rate and rhythm. No murmur appreciated. ABDOMEN: Soft, nondistended, normal active bowel sounds.+ tenderness to the left lateral abdomen with mild rebound. No guarding. MUSCULOSKELETAL: No bony tenderness of the thoracic and lumbar spine. Right upper lumbar point tenderness in the right paraspinal muscles. Pain elicited with twisting movement. EXTREMITIES: Normal range of motion. No edema. SKIN: Warm, dry, no rash. Capillary refill normal. Normal skin turgor. NEURO: No focal deficits. Alert and oriented x3. Gait steady. PSYCH: Normal affect. No signs of depression or anxiety. Course Course Level of Care: Express Care Visit Vital Signs Vital signs: Vital Signs Temperature 98.1 F 01/31/25 18:55 Pulse Rate 90 01/31/25 18:55 Respiratory Rate 16 01/31/25 18:55 Blood Pressure 138/84 01/31/25 18:55 Pulse Oximetry 97 01/31/25 18:55 Oxygen Delivery Room Air 01/31/25 18:55 Temperature 98.1 F 01/31/25 18:55 Pulse Rate 90 01/31/25 18:55 Respiratory Rate 16 01/31/25 18:55 Blood Pressure 138/84 01/31/25 18:55 Pulse Oximetry 97 01/31/25 18:55 Oxygen Delivery Room Air 01/31/25 18:55 Reviewed MDM - Abdominal Pain MDM Narrative Medical decision making narrative: Patient is 64-year-old male with history of chronic vertigo, hypertension, high cholesterol with complaints right flank pain, left upper quadrant pain, and presyncope. Due to diagnostic limitations of [facility], it was strongly recommended that patient proceed to ER for further evaluation of his abdominal pain and lightheadedness symptoms. In contrast to patient's HPI, he states that his lightheadedness symptoms can be consistent with his chronic vertigo and does not feel that this needs further evaluation. Tonight he does not wish to go to the ER for evaluation of his abdominal pain and would like to contact his PCP to see if she will order outpatient testing for him. States he will proceed to the ER this weekend if symptoms worsen. Vital signs stable. Patient's back tenderness, coupled with his history of heavy lifting, is likely due to back strain. Recommend continuing ibuprofen. Vital signs are stable at this time. Differential Diagnosis Differential diagnosis: Likely abdominal pain, constipation, diverticulitis and other (Irritable bowel syndrome, vertigo exacerbation, arrhythmia, electrolyte imbalance, dehydration) Critical Care Time Critical Care Time Critical Care Time: No Discharge Plan Discharge Clinical Impression: Lightheadedness, Left sided abdominal pain Low back strain Qualifiers: Encounter type: initial encounter Qualified Code(s): S39.012A - Strain of muscle, fascia and tendon of lower back, initial encounter Patient Disposition: Home Condition: Stable Instructions: Abdominal Pain (ED), Lightheadedness (ED) Additional Instructions: You have declined transfer to the ER tonight. Please proceed there if symptoms worsen or persist. Take Tylenol or ibuprofen for your low back discomfort. If your lightheadedness returns, it is also recommended that you be re-evaluated. Your blood pressure was elevated above 120/80 today at Urgent Care. This puts you above the threshold for follow up. Please schedule a followup visit with your personal physician as soon as possible, for further evaluation and treatment. Even blood pressure exceeding 120/80 may indicate pre-hypertension. Patient Language: Bruneian Prescriptions: No Action albuterol sulfate 90 mcg/actuation HFA aerosol inhaler 1 puff inhalation Q4H PRN (Reason: shortness of breath or wheezing) Qty: 8.5 0RF bupropion HCl 150 mg tablet sustained-release 12 hr See Rx Instructions .ROUTE .COMPLEX Qty: 180 1RF Dose Instruction: TAKE 1 TABLET BY MOUTH TWICE DAILY Rx Instructions: TAKE 1 TABLET BY MOUTH TWICE DAILY simvastatin 20 mg tablet See Rx Instructions .ROUTE .COMPLEX Qty: 90 1RF Dose Instruction: TAKE 1 TABLET BY MOUTH AT BEDTIME Rx Instructions: TAKE 1 TABLET BY MOUTH AT BEDTIME losartan 25 mg tablet See Rx Instructions .ROUTE .COMPLEX Qty: 90 1RF Dose Instruction: TAKE 1 TABLET BY MOUTH DAILY Rx Instructions: TAKE 1 TABLET BY MOUTH DAILY Follow-up/Referrals: Rachael Fernández, FERRY OPERATOR-C [Primary Care Provider] - Time of Disposition: 19:27
== END 2025-01-31 19:33 | disposition home or self-care (01) ==
PROVIDERS: Emergency Provider Nurse Practitioner; PCP Clinical Nurse Specialist
DX: R42 Dizziness and giddiness (principal); R10.9 Unspecified abdominal pain; S39.012A Strain of muscle, fascia and tendon of lower back, initial encounter; X50.0XXA Overexertion from strenuous movement or load, initial encounter; Z87.891 Personal history of nicotine dependence; I10 Essential (primary) hypertension; E78.00 Pure hypercholesterolemia, unspecified; F41.9 Anxiety disorder, unspecified; L40.9 Psoriasis, unspecified
CPT/HCPCS: 99212; G0463

== ENCOUNTER 2025-02-05 15:01 | Outpatient (CLI) | payer OTHER, SELFPAY ==
[2025-02-05 16:06] LABS: Hematocrit 41.7 % (42.0-52.0); Hemoglobin 13.5 g/dL (14.0-18.0); Immature Granulocyte Percent A 0.2 % (0-0.5); Lymphocytes Absolute Auto 3.37 K/mm3 (0.9-3.2); Mean Corpuscular HGB Conc 32.4 g/dl (32-36); Mean Corpuscular Hemoglobin 29.7 pg (26-34); Mean Corpuscular Volume 91.6 fl (80-100); Nucleated Red Blood Cells Absolute Auto 0.000 K/mm3 (0.0-0.012); Nucleated Red Blood Cells Perc 0.0 % (0.0-0.2); Platelet Count Result 289 k/mm3 (150-375); Red Blood Count 4.55 M/mm3 (4.6-6.20); White Blood Count 8.3 K/mm3 (4.5-10.0)
[2025-02-05 16:10] LABS: Add Urine Microscopic? YES; Appearance Urine Clear (Clear); Glucose Urine UA Negative (Negative); Leukocyte Esterase Ur Trace LEU/UL (Negative); Nitrate Urine Negative (Negative); Non Pathogenic Casts 0-2; Specific Grav Ur 1.009 (1.001-1.035)
[2025-02-05 16:20] LABS: Alanine Aminotransferase 29 U/L (6-50); Albumin Level 4.5 g/dL (3.5-5.1); Alkaline Phosphatase 52 U/L (38-126); Amylase 87 U/L (30-110); Anion Gap 7 mmol/L (4-12); Aspartate Amino Transferase 44 U/L (17-59); Bilirubin,Total 0.3 mg/dL (0.2-1.3); Blood Urea Nitrogen 19 mg/dL (9-20); Calcium 9.6 mg/dL (8.4-10.2); Carbon Dioxide 27 mmol/L (22-30); Chloride 106 mmol/L (98-107); Estimated Glomerular Filt Rate > 60; Glucose 89 mg/dL (65-110); Lipase 169 U/L (23-300); Potassium 4.2 mmol/L (3.4-5.0); Sodium 140 mmol/L (137-145); Total Protein 7.1 g/dL (6.3-8.2)
== END 2025-02-05 15:02 | disposition home or self-care (01) ==
LOC: ANHGOSHLAB 15:04
PROVIDERS: PCP Clinical Nurse Specialist; Visit Provider Internal Medicine
DX: R10.84 Generalized abdominal pain (principal)
CPT/HCPCS: 36415; 80053; 81001; 82150; 83690; 85025

== ENCOUNTER 2025-04-16 08:18 | Outpatient (CLI) | payer OTHER, SELFPAY ==
--- NOTE | ~2025-04-16 | US_ITS ---
EXAMINATION: US carotid duplex BI DATE: 04/16/2025 08:55 INDICATION: Other specified symptoms and signs involving the circulatory system. Right carotid bruit. TECHNIQUE: Grayscale, color Doppler, and pulsed Doppler images of the cervical carotid arteries were obtained. The degree of vessel stenosis is placed in one of the following categories: normal, <50%, 50-69%, >=70% but less than near- occlusion, near-occlusion, or total occlusion. Note that percent stenosis relative to normal distal artery lumen diameter is indirectly measured from velocity measurements as described by Luis, et al. Radiology 2003; 229:340-346. COMPARISON: None. FINDINGS: RIGHT: The right common carotid artery (CCA) peak systolic velocity (PSV) is 101 cm/s. The right internal carotid artery (ICA) PSV is 84 cm/s. The right ICA end- diastolic velocity (EDV) is 24 cm/s. The right ICA/CCA PSV ratio is 0.8. Grayscale and color Doppler images yield an estimate of <50% diameter reduction from plaque in the ICA. There is antegrade flow in the right vertebral artery. LEFT: The left CCA PSV is 102 cm/s. The left ICA PSV is 106 cm/s. The left ICA EDV is 46 cm/s. The left ICA/CCA PSV ratio is 1.0. Grayscale and color Doppler images yield an estimate of <50% diameter reduction from plaque in the ICA. There is antegrade flow in the left vertebral artery. IMPRESSION: 1. <50% stenosis in the right internal carotid artery. 2. <50% stenosis in the left internal carotid artery. Reviewed, dictated and finalized at location E.
--- NOTE | ~2025-04-16 | US_ITS ---
EXAMINATION: US abdomen complete, 04/16/2025 8:19 CDT HISTORY: R10.84 - Generalized abdominal pain COMPARISON: None Technique: Mosquera-scale and color Doppler images were obtained. Findings: LIVER: Left lobe liver simple cyst 1.1 x 1 cm. . GALLBLADDER/BILIARY: Unremarkable.No cholelithiais, wall thickening or pericholecystic fluid. No biliary dilatation. CBD 4 mm. Lomax sign negative. PANCREAS: Unremarkable. SPLEEN: Unremarkable, no splenomegaly. KIDNEYS: Right Kidney: Right kidney 13 x 4 x 6 cm, normal. Left Kidney: Left kidney 13.7 x 4.5 x 5.8 cm, normal. AORTA: Normal caliber aorta. IVC: Unremarkable. FREE FLUID: None. Impression: No acute abnormality. Reviewed, dictated and finalized at location A. Impression: No acute abnormality.
== END 2025-04-16 08:19 | disposition home or self-care (01) ==
PROVIDERS: PCP Clinical Nurse Specialist; Visit Provider Nurse Practitioner
DX: R10.84 Generalized abdominal pain (principal); R09.89 Other specified symptoms and signs involving the circulatory and respiratory systems; I65.23 Occlusion and stenosis of bilateral carotid arteries
CPT/HCPCS: 76700; 93880

== ENCOUNTER 2025-05-13 10:07 | Outpatient (CLI) | payer OTHER, SELFPAY ==
--- NOTE | ~2025-05-13 | MR_ITS ---
EXAMINATION: MR knee RT wo con DATE: 05/13/2025 10:47 INDICATION: Internal derangement of the right knee TECHNIQUE: Magnetic resonance imaging (MRI) of the right knee was performed without intravenous contrast. Sequences included coronal PD-weighted FSE, coronal PD-weighted FS FSE, sagittal T2-weighted FSE, sagittal PD-weighted FS FSE and axial PD weighted fat saturated FSE. COMPARISON: None. FINDINGS: Medial compartment: Involving the complex medial meniscal tear involving the free edge and inferior articular surface of the body and posterior horn. There is meniscal tissue extending more centrally between the anterior weightbearing medial femoral condyle and the central aspect of the medial tibial plateau which suggests either discoid the medial meniscus or a displaced meniscal flap. There is deep chondral ulceration with underlying subarticular edema-like signal change along the anterior third of the medial tibial plateau. Partial-thickness chondral ulceration with deeper fissuring and underlying subarticular edema-like and cystlike changes at the anterior weightbearing medial femoral condyle. Lateral compartment: Longitudinal horizontal tear extending to the intra-articular surface of the body and posterior horn of the lateral meniscus. Small partial-thickness chondral fissure involving approximately 50% the cartilage thickness at the central aspect of the lateral tibial plateau. Shallow chondral fissuring with mild chondral surface regularity along the junction of the central to posterior weightbearing lateral femoral condyle. Patellofemoral compartment: Deep chondral fissuring with mild underlying subarticular cystlike change at the inferior aspect of the medial patellar facet. Small region of full-thickness chondral ulceration at the cephalad aspect of the patellar apical ridge and immediately adjacent medial facet. Moderate-sized region of deep chondral ulceration and fissuring with small central subchondral osteophytes and mild subarticular edema-like signal change at the inferior aspect of the medial trochlea. Ligaments and tendons: Anterior and posterior cruciate ligaments are normal. The medial collateral ligament and fibular collateral ligament complex are normal. Small enthesophytes and mild tendinopathy at the patellar insertion of the distal quadriceps tendon. Patellar tendon is normal. The visualized medial and lateral hamstring tendons as well as the iliotibial band are normal. Fluid: Physiologic amount of fluid in the joint space. No loose osteochondral bodies identified. Osseous/other: No fracture or pathologic marrow replacing process. Mild prepatellar edema without discrete bursal fluid collection. Mild edema at the superficial suprapatellar fat pad which can be seen with fat pad impingement syndrome. IMPRESSION: 1. Complex medial meniscal tear of either a discoid medial meniscus or with central displacement of a meniscal flap. 2. Longitudinal horizontal tear of the body and posterior horn of the lateral meniscus. 3. 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 4. Edema in the superficial suprapatellar fat pad which can be seen with fat pad impingement syndrome. Reviewed, dictated and finalized at location A. IMPRESSION: 1. Complex medial meniscal tear of either a discoid medial meniscus or with luis tral displacement of a meniscal flap. 2. Longitudinal horizontal tear of the body and posterior horn of the lateral m eniscus. 3. Mild tricompartmental osteoarthritis with moderate grade chondromalacia in t he lateral compartment and high-grade chondromalacia in the medial compartment and medial side of the patellofemoral compartment. 4. Edema in the superficial suprapatellar fat pad which can be seen with fat pa d impingement syndrome.
== END 2025-05-13 10:08 | disposition home or self-care (01) ==
LOC: MICIMG 10:08
PROVIDERS: PCP Clinical Nurse Specialist; Visit Provider Orthopaedic Surgery
DX: S83.231A Complex tear of medial meniscus, current injury, right knee, initial encounter (principal); X58.XXXA Exposure to other specified factors, initial encounter; M17.11 Unilateral primary osteoarthritis, right knee
CPT/HCPCS: 73721

== ENCOUNTER 2025-05-23 09:17 | Outpatient (CLI) | payer OTHER, SELFPAY ==
--- NOTE | 2025-05-23 09:23 | ECG_ITS ---
Test Date: 2025-05-23 09:33:46 Measurements Intervals [place] Rate: 78 P: 62 SC: 158 QRS: -14 QRSD: 99 T: 60 QT: 381 QTc: 435 Interpretive Statements SINUS RHYTHM BASELINE ARTIFACT- I, III, AVR, AVL, AVF NORMAL ECG No previous ECG available for comparison Electronically Signed On 05-23-2025 09:42:30 CDT by Rachid Najera D.O.
== END 2025-05-23 09:18 | disposition home or self-care (01) ==
LOC: ANHLAB 09:19
PROVIDERS: PCP Clinical Nurse Specialist; Visit Provider Orthopaedic Surgery
DX: I10 Essential (primary) hypertension (principal)
CPT/HCPCS: 93005

== ENCOUNTER 2025-06-06 00:53 | Day surgery (SDC) | payer OTHER, SELFPAY ==
[2025-05-27 10:59] VITALS: BMI 29.9
--- NOTE | 2025-05-27 11:00 | PC.NURSE ---
[facility] has started construction of its new state of the art ER which will open Spring 2026. With this, we anticipate parking may be a challenge for some our surgical patients and families. Parking spaces are limited but are available for all Surgical, obstetrics, and ER patients sharing this lot. If you arrive and find you are having a hard time finding a parking space, please note that we understand the challenges, please drive around the hospital and park near Hospital Entrance 1. When you enter this entrance, you can ask a volunteer to direct or take you back to the surgical waiting area to check in. We appreciate everyone?s understanding of these expected challenges while we build for your future. Report to the Outpatient Waiting Room, entrance under the green pavilion located off [address], at time _1100_ on date _[id number]_. Planned Procedure Time: _1pm_.? Time changes happen often and if your time is changed the preop area will call you the afternoon before. - You and your visitor will be asked to self-screen and do not enter if you have any COVID symptoms. Please call surgeon if you need to reschedule. - A mask is optional within the hospital at this time. Patients may have clear liquids (water, carbonated beverages, clear teas, apple juice) until 3 hours prior to surgery with a maximum of 20 ounces. - No food from midnight until time of surgery and no smoking, or chewing tobacco (or any form of nicotine). No chewing gum, candy or mints. Take only the following medications with a SIP of water on the morning of surgery: __Bupropion____ DO NOT STOP ANY OF YOUR OTHER PRESCRIPTION MEDICATIONS PRIOR TO SURGERY EXCEPT THE FOLLOWING Hold all vitamins and supplements for 3 days per anesthesiologist. Medications to discontinue per physician Date to take last dose Please no make-up, nail belarusian, hairspray, perfume, deodorant, or body powder the day of surgery.? No jewelry (including any body piercings) or valuables the day of surgery, leave them at home.? Please take a shower or bath the night before, or the morning of, surgery with an antibacterial soap.? Wear comfortable, loose fitting clothing. - Jewelry must be removed prior to entering the operating room.? Rings and piercings that are not removed may be cut off. - The hospital will not accept responsibility for valuables.? - Please leave all valuables, including medications, at home the day of surgery. If you are going home after surgery, a licensed tanker truck driver must drive you home.? - NO public transportation without another adult if you receive anesthesia. - We recommend that an adult stay with you for 24 hours following discharge. - We also recommend that you do not drive, make important decision, drink alcoholic beverages, or take any drugs that were not prescribed by your health care provider for at least 24 hours after your discharge time. Follow any additional instructions given to you from your surgeon. Telephone instructions given to __Baron__and asked if any additional questions and then verbalized understanding. Patient advised to call surgeon office or pre surgery nurse liaison [phone] if any additional questions.
[2025-06-06] VITALS (9 sets, daily range): BP systolic 109–127; BP diastolic 60–83; PULSE 60–75; RESP 8–16; TEMP 36.4–36.9; O2SAT 94–100
[2025-06-06] MEDS: KETOROLAC 15 MG/ML VIAL (*BKC) IV PUSH (11:45)
[2025-06-06] MEDS: ACETAMINOPHEN 500 MG TABLET 1000 MG PO (11:45)
--- NOTE | 2025-06-06 12:58 | WPDANESEPPF ---
Anes - Initial Pre Proc Eval Procedure: Operation Date: 06/06/25 13:00 Proposed Procedures p Right Knee Arthroscopic Partial Medial Meniscectomy - Charbel Brown MD Date/Time: 06/06/25 12:58 Surgeon: Charbel Brown MD Pre Op Diagnosis: rt knee medial meniscus tear Patient Data Age: 64 Gender: M Height: 1.83 m Weight: 102.9 kg Last Vital Signs Temp 36.9 C 06/06/25 11:45 Pulse 70 06/06/25 11:45 Resp 16 06/06/25 11:45 BP 122/76 06/06/25 11:45 Pulse Ox 98 06/06/25 11:45 O2 Del Method Room Air 06/06/25 11:45 Allergies Allergy/AdvReac Type Severity Reaction Status Date / Time No Known Allergies Allergy Verified 06/06/25 12:03 Home Medications ?Medication ?Instructions ?Recorded ?Confirmed ?Type bupropion HCl 150 mg tablet,12 hr See Rx Instructions .Route 02/21/25 06/06/25 Rx sustained-release .COMPLEX #180 tabs simvastatin 20 mg tablet See Rx Instructions .Route 03/18/25 05/29/25 Rx .COMPLEX #90 tabs losartan 25 mg tablet See Rx Instructions .Route 04/08/25 05/29/25 Rx .COMPLEX #90 tabs hydrocodone 5 mg-acetaminophen 325 1 - 2 tablet PO Q4-6H PRN pain 7 06/06/25 Rx mg tablet days #30 tabs Patient hx anesthesia problems: none Family hx anesthesia problems: none Results Review: All pre-operative results and documents have been reviewed as part of the pre-operative evaluation. [facility] Past Medical History Medical History Encounter to establish care Low oxygen saturation Colon cancer screening Degenerative arthritis of knee, bilateral Psoriasis Anxiety High cholesterol Hypertension Surgical History Surgical History History of rotator cuff surgery Left shoulder 05/30/2018 Family History Family History Grandparent Family history of cardiovascular disease Father Hypertension Heart disease Malignant neoplasm of prostate Metastatic prostate cancer to the bone (under hospice care November 2024) Father No problems noted. Social History Social History Social History: caffeine- daily Smoking packs per day: 1 Smoking cigarettes per day: 20.0 Years smoked: 15 Smoking pack-years: 15.00 Smoking status: Former smoker Tobacco type: cigarettes Smoking end date: 05/27/00 Alcohol intake: never Substance use: never Substance use type: does not use Do You Feel Safe in your Home?: Yes Lack of Transportation: No Lack of Food: Never True Current Housing: I Have Housing Concerned About Future Housing: No Difficulty Paying Gas/Electric Bills: No Difficulty Paying for Meds: No Currently Unemployed: No Education: Bachelor's Degree Difficulty w/ Childcare or Family Care: No Living arrangements: with family Additional living arrangements comments: Essie Nagy Occupation/Education: occupation Additional occupation/education comments: [employer] Gender identity (if verbalized by the patient): Male Spiritual care concerns: No Anes - Eval Final PreProcedure Day of Procedure 06/06/25 12:58 Patient weight: obese Heart: regular rate and rhythm Lungs: normal air movement Airway: Mallampati scale class II Neurological: alert and oriented Last oral intake: >/= 8 hours ASA classification: III Emergent: no Anesthetic plan: proceed Anesthesia type and monitoring: general LMA and standard monitoring Results Review: All pre-operative results and documents have been reviewed as part of the pre-operative evaluation. Informed Consent: The patient's anesthetic plan and its attendant risks and benefits were discussed with the patient/family/POA. Questions were solicited and answers provided to the satisfaction of the patient/family/POA.
--- NOTE | 2025-06-06 13:10 | WPDHPUPDATE1 ---
History and Physical Update Update Date/Time: 06/06/25 13:10 History and Physical has been reviewed, including an updated exam of the patient. There are NO changes in the patient's condition. Risks, benefits, and alternatives have been discussed and questions answered. Patient agrees to proceed with procedure.
[2025-06-06] MEDS: ceFAZolin 2 GM in SODIUM CHLORIDE 0.9% IV 50 ML 100 ML IVPB (13:14)
[2025-06-06] MEDS: BUPIVACAINE/EPINEPHRINE 0.5% 50 ML VIAL 30 ML INFILTRATE (13:36)
[2025-06-06] MEDS: LACTATED RINGERS 1,000 ML 30 ML IV CONT (14:18)
--- NOTE | 2025-06-06 14:33 | W.PM.PROC2 ---
Procedure Note - Detailed Date of Procedure 06/06/25 Pre-op Diagnosis 1. Right knee medial and lateral meniscus tears 2. Right knee medial femoral condyle osteochondral defect Post-op Diagnosis Same Procedure Performed Arthroscopic right knee 1. Partial medial and lateral meniscectomies 2. Medial femoral condyle microfracture Surgeon Charbel Brown MD Anesthesia General Indications MRI showed a complex medial meniscus tear and longitudinal and horizontal cleavage lateral meniscus tear on the inner margin. Also significant bony edema in the medial femoral condyle with overlying chondromalacia. Findings The medial tear was very unstable and complex. Consistent with the MRI findings. It was debrided to a stable rim. The medial femoral condyle had a osteochondral defect at the weight-bearing aspect. There was grade 4 chondromalacia with exposed bone. After the friable edges were debrided to a stable rim, the defect measured 1.2 cm x 1.2 cm. The arthroscopic awl was used to create 5 microfracture openings in the subchondral bone. A spinal needle was used to penetrate deeper where able to encourage more bone marrow stimulation. The lateral meniscus had inner margin tearing which was modest but significant. This was debrided with the arthroscopic shaver to a stable rim. The cartilage in the lateral compartment was normal. The patellofemoral car which had mild grade 1/2 chondromalacia. The tibia had grade 1 chondromalacia. Except for the defect, the medial femur showed grade 1/2 chondromalacia. Description of Procedure The patient was identified and the surgical site confirmed and signed in the preoperative holding area. Antibiotics were started per protocol, and the patient was brought to the operative room and transferred to the OR table. A general anesthetic was administered. Supine position with the operative lower extremity position in the leg stuart after placement of a well padded tourniquet. The leg support was lowered and the contralateral limb was supported with a soft bolster. The knee was prepped and draped in the usual sterile fashion. A time-out was performed. The portal sites were marked and infiltrated with 0.5% Marcaine 20 mL. The limb was exsanguinated and the tourniquet inflated to 300 mL Hg. Standard inferolateral and inferomedial portals were established. Inflow was obtained with the saline pump. The camera was introduced. Diagnostic inspection of the joint was accomplished. The menisci were debrided with the arthroscopic shaver and punches until stable. The medial femoral condyle defect was cleared with the shaver. The curette was used to delineate a stable rim all around the defect. The subchondral bone was slightly friable and appeared necrotic. Microfracture was performed with the angled awl. Several holes were created. Two of the holes that were accessible with a spinal needle were deepened to encourage further bone marrow egress into the area of involvement on the MRI. Excellent egress of bone marrow contents was confirmed after the tourniquet was released. The arthroscopic instruments were removed. The tourniquet released and wounds closed with subcutaneous 4-0 Monocryl absorbable suture. Steri strips and a sterile dressing were applied. A light elastic wrap was placed. The patient was extubated and brought to the recovery room in stable condition. Estimated Blood Loss 5 Drains No Complications No immediate complications Condition Stable Disposition PACU [facility] Billing Surgery - Charge Forward: Surgery Billing
== END 2025-06-06 16:32 | disposition home or self-care (01) ==
PROVIDERS: PCP Clinical Nurse Specialist; Visit Provider Orthopaedic Surgery
PROC: (CPT 29870; principal; 2025-06-06 13:00)
DX: M23.361 Other meniscus derangements, other lateral meniscus, right knee (principal); M23.331 Other meniscus derangements, other medial meniscus, right knee; M23.91 Unspecified internal derangement of right knee; M22.41 Chondromalacia patellae, right knee
CPT/HCPCS: 29880; 29879; J0690; A9270; J1885; J2003; J2250; J2405; J2704; J3010; J7120